=== PATIENT | female | born 1965 ===

== ENCOUNTER 2022-06-12 18:23 | Emergency (ER) | payer OTHER ==
[2022-06-12] MEDS ORDERED: Bacitracin Oint 1 GM U/D Packet TOP ONE (19:03)
[2022-06-12] MEDS ORDERED: Lidocaine 1% 5 ML VIAL INJECT ONE (19:04)
[2022-06-12] MEDS ORDERED: Lidocaine 1% 5 ML VIAL ONE (19:06)
[2022-06-12] MEDS ORDERED: Bacitracin Oint 1 GM U/D Packet ONE (19:06)
== END 2022-06-12 19:31 | disposition home or self-care (01) ==
LOC: DL.ED 18:23
DX: S00.85XA Superficial foreign body of other part of head, initial encounter (principal); E78.00 Pure hypercholesterolemia, unspecified; I10 Essential (primary) hypertension; E11.9 Type 2 diabetes mellitus without complications; Z79.84 Long term (current) use of oral hypoglycemic drugs; Z79.899 Other long term (current) drug therapy; W45.8XXA Other foreign body or object entering through skin, initial encounter
CPT/HCPCS: 99283